=== PATIENT | male | born 1975 | race American Indian/Alaskan Native ===

== ENCOUNTER 2019-02-15 02:32 | Emergency (ER) | payer MEDICAID, OTHER ==
[2019-02-15 02:53] VITALS: BP 141/97; PULSE 77; RESP 20; TEMP 98.3; O2SAT 100
--- NOTE | 2019-02-15 03:06 | C.PDOC ---
History Of Present Illness 43 year old male presents to ED for evaluation of a superficial abrasion to the right elbow. Patient states that he was in a bar and got accidentally pushed against the bar corner. He states that the metal scraped his right elbow. He states that he wants to be evaluated and wants to receive wound care. He denies weakness, numbness, or discharge from the area. Time Seen by Provider: 02/15/19 02:56 Chief Complaint (Nursing): Abnormal Skin Integrity History Per: Patient History/Exam Limitations: no limitations Onset/Duration Of Symptoms: Hrs (2) Current Symptoms Are (Timing): Still Present Location Of Injury: Right: Elbow (abrasion) Quality Of Symptoms: denies: Swollen, Draining Past Medical History Reviewed: Historical Data, Nursing Documentation, Vital Signs Vital Signs: Last Vital Signs Temp 98.3 F 02/15/19 02:49 Pulse 77 02/15/19 02:49 Resp 20 02/15/19 02:49 BP 141/97 H 02/15/19 02:49 Pulse Ox 100 02/15/19 02:49 Primary Care Provider: Miki Driver Medical History PMH: HTN Surgical History: No Surg Hx Family History: States: Unknown Family Hx - Social History Hx Alcohol Use: Yes Hx Substance Use: Yes - Immunization History Hx Tetanus Toxoid Vaccination: Yes Hx Influenza Vaccination: Yes Hx Pneumococcal Vaccination: Yes Review Of Systems Constitutional: Negative for: Fever, Chills, Weakness Musculoskeletal: Positive for: Other (abrasion to the right elbow, no discharge, no swelling, no redness) Neurological: Negative for: Weakness, Numbness Physical Exam - Physical Exam Appears: Non-toxic, No Acute Distress Skin: Normal Color, Warm, Dry, Other (superficial abrasion over the right elbow, no palpable foreign body, no suture, no puncture wound, no hematoma) Head: Atraumatic, Normacephalic Neck: Normal ROM, Supple Extremity: Normal ROM (right elbow), No Tenderness, Capillary Refill (<2 seconds), No Swelling Extremity: Bilateral: Normal Color And Temperature Pulses: Left Radial: Normal, Right Radial: Normal Neurological/Psych: Oriented x3, Normal Speech, Normal Cognition, Normal Motor, Normal Sensation ED Course And Treatment O2 Sat by Pulse Oximetry: 100 (in RA) Pulse Ox Interpretation: Normal Progress Note: Area cleansed with bacitracin and saline. Patient given instructions for wound care. Patient discharged home. Disposition Counseled Patient/Family Regarding: Diagnosis, Need For Followup, Rx Given - Disposition Referrals: 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 (Nicolasa Carrera) - Scribe Statement The provider has reviewed the documentation as recorded by the Scribe (Nicolasa Carrera) All medical record entries made by the Scribe were at my direction and personally dictated by me. I have reviewed the chart and agree that the record accurately reflects my personal performance of the history, physical exam, medical decision making, and the department course for this patient. I have also personally directed, reviewed, and agree with the discharge instructions and disposition.
== END 2019-02-15 03:15 | disposition home or self-care (01) ==
LOC: C.ER 02:32
DX: S50.311A Abrasion of right elbow, initial encounter (principal); W22.8XXA Striking against or struck by other objects, initial encounter; I10 Essential (primary) hypertension